=== PATIENT | female | born 1950 | race Caucasian/White ===

== ENCOUNTER 2017-12-15 06:32 | Day surgery (SDC) | payer MEDICARE, SELFPAY ==
[2017-12-09 09:12] VITALS: BP 124/80; PULSE 95; RESP 16; TEMP 37; O2SAT 94; BMI 32.8
--- NOTE | 2017-12-09 14:45 | SDCEKG_ITS ---
Test Reason : Blood Pressure : / mmHG Vent. Rate : 085 BPM Atrial Rate : 085 BPM P-R Int : 140 ms QRS Dur : 074 ms QT Int : 358 ms P-R-T Axes : 063 049 043 degrees QTc Int : 426 ms Normal sinus rhythm Normal ECG Confirmed by MIGUEL BERMAN, [place] ([id number]), online content editor SANDRA FRANK ([id number]) on 12/11/2017 1:00:01 PM Referred By: Leslie Mclaughlin Confirmed By:AFRICA RIVERA MD
--- NOTE | 2017-12-15 | BLA_PTH ---
PATIENT: NADIRA ORELLANA [place] [facility] [place][id number] AGE/SX: 67/F ROOM: RE12/15/[address]: Dr. Leslie Mclaughlin MD : 1950 BED: DIS: 12/15/2017 SPEC #: [id number] RECD: 12/15/17 12:03 STATUS: TARAN TIH #: [id number] MATTIE: 12/15/17 00:[address]: Leslie Mclaughlin DEPT: SURGICAL PATHOLOGY RECD BY: Sudhir Byrd ENTERED: 12/15/17 12:04 SP TYPE: BLADDER BX OTHR DR: Out of Town Doctor Tissues: Urinary bladder, NOS Procedures: Surgery Specimen Level IV HEADER OPERATION: Cyst, urethral dilation, poss. bladder biopsy with fulguration PRE-OP DIAGNOSIS: Cystitis TISSUE SUBMITTED: Bladder biopsy MICROSCOPIC DIAGNOSIS Bladder, biopsy: Urothelial mucosa with chronic inflammation. Negative for malignancy. See comment. SJ:eleanor 12/16/17 COMMENT Detrusor muscle is not identified in the submitted specimen. The epithelium is denuded from the underlying mucosa. MICROSCOPIC DESCRIPTION Slides are reviewed. GROSS DESCRIPTION Received in fixative is one container labeled with the patient's name and designated bladder biopsy. The specimen consists of multiple irregular fragments of light taylor soft tissue that in aggregate measure 0.2 x 0.2 x 0.1 cm. The specimen is totally submitted in one cassette. / SJ:eleanor 12/15/17 TC:3 CPT: 79163
[2017-12-15 06:59] VITALS: BP 136/72; PULSE 74; RESP 16; TEMP 37; O2SAT 98; BMI 32.8
[2017-12-15] MEDS: Cefazolin 2 GM in 0.9% Normal Saline 100 ML IV (08:04)
--- NOTE | 2017-12-15 08:49 | PCM.IMDPSTOP ---
Immediate Post-Op Note Date of Procedure: 12/15/17 Primary Surgeon/Physician: Leslie Mclaughlin MD employment appeals examiner: None Pre-Operative Diagnosis: interstitial cystitis, bladder pain, urinary frequency, urethral stenosis Post-Operative Diagnosis: same and Hunner's Ulcers Surgery/Procedure Performed:: cystoscopy, bladder biopsy and fulguration Description of Surgical Findings:: two large ulcerations on the dome of the bladder approximately 1cm in size each. Estimated Blood Loss: 2cc Specimen's removed: bladder biopsy Type of Anesthesia:: General - Admit VTE Documentation VTE Present on Admission: Yes VTE Mechan Device Prophylaxis: SCD's VTE Pharm Prophylaxis ordered?: No Reason prophylaxis not ordered:: Treatment Not Indicated
--- NOTE | 2017-12-15 08:52 | OP.PN_ITS ---
Immediate Post-Op Note Date of Procedure: 12/15/17 Primary Surgeon/Physician: Leslie Mclaughlin MD double end tenon operator: None Pre-Operative Diagnosis: interstitial cystitis, bladder pain, urinary frequency, urethral stenosis Post-Operative Diagnosis: same and Hunner's Ulcers Surgery/Procedure Performed:: cystoscopy, bladder biopsy and fulguration Description of Surgical Findings:: two large ulcerations on the dome of the bladder approximately 1cm in size each. Estimated Blood Loss: 2cc Specimen's removed: bladder biopsy Type of Anesthesia:: General - Admit VTE Documentation VTE Present on Admission: Yes VTE Mechan Device Prophylaxis: SCD's VTE Pharm Prophylaxis ordered?: No Reason prophylaxis not ordered:: Treatment Not Indicated
--- NOTE | 2017-12-15 08:56 | OP.PCM_ITS ---
Problem List (1) Interstitial cystitis Status: Acute (2) Urinary frequency Status: Acute (3) Bladder pain Status: Acute (4) Urethral stenosis Status: Acute Report of Operation Date of Procedure: 12/15/17 Pre-Operative Diagnosis: interstitial cystitis, bladder pain, urinary frequency, urethral stenosis Post-Operative Diagnosis: same and Hunner's Ulcers Surgery/Procedure Performed:: urethral dilation, cystoscopy, bladder biopsy and fulguration Description of Surgical Findings:: two large ulcerations on the dome of the bladder approximately 1cm in size each. Type of Anesthesia:: General Specimen's removed: bladder biopsy Estimated Blood Loss (mL): 2cc Description of Procedure: The patient is a 67-year-old female that I have been treating for se veral years with signs and symptoms of interstitial cystitis. I attempted cystoscopy on her but it was too painful for me to dilate her urethra in order to do the cystoscopy. After discussing all of the risks benefits and alternatives, she has agreed to proceed with cystoscopy under anesthesia with urethral dilation, possible biopsy if necessary. The patient was taken to the operating room and placed on the operating room table. Anesthesia monitored the head, neck, airway, vital signs, IV access during the case. Once anesthesia was appropriately administered the patient was placed into dorsal lithotomy and Trendelenburg position. She was prepped and draped in usual sterile fashion. Her urethra was then dilated from 13 Cypriot up to 29 Cypriot. A cystourethroscopy was then performed and revealed 2 large Hunner's ulcers on the posterior bladder wall close to the dome of the bladder. Each were approximately 1 cm in size. There was diffuse irritation and bleeding from the bladder mucosa. I biopsied the largest ulcer in the posterior bladder wall. I fulgurated this ulceration and the other clear area of ulceration. This was done for tissue treatment and hemostatic control. At this point, once appropriate fulguration had been performed, the patient's bladder was emptied and the case was terminated. She was taken to the recovery room in good condition. - Complications none. - Admit VTE Documentation VTE Present on Admission: Yes VTE Mechan Device Prophylaxis: SCD's VTE Pharm Prophylaxis ordered?: No Reason prophylaxis not ordered:: Treatment Not Indicated
[2017-12-15 08:59] VITALS: BP 127/70; BP 136/72; PULSE 76; RESP 16; TEMP 36.2; O2SAT 93
--- NOTE | 2017-12-15 09:11 | DCINST_ITS ---
Discharge Diet: No Restrictions - avoid acidic foods Discharge Activity: Return to Normal Activity May resume sexual activity in: No Restrictions Call your doctor if you observe: Fever of 101 or Higher, Inability to urinate, Shortness of breath, Chest pain, Calf discomfort Allergies/Adverse Reactions: Allergies SEASONAL ALLERGIES Allergy (Uncoded 12/09/17 09:09) Other Medications to take at Discharge Amoxicillin 875 mg PO BID 12/09/17 Ibuprofen/Pseudoephedrine HCl [Advil Cold & Sinus Caplet] 1 each PO BID 12/09/17 Meclizine HCl [Antivert] 12.5 mg PO BID PRN PRN 12/09/17 Methen/Sod Phos/Meth Blue/Hyos [Urogesic-Blue Tablet] 1 each PO PRN PRN 12/09/17 Oxycodone HCl/Acetaminophen [Percocet 5/325] 1 - 2 tab PO Q6H PRN PRN 7 Days #30 tab 12/15/17 The following prescriptions were given: Oxycodone HCl/Acetaminophen [Percocet 5/325] 1 - 2 tab PO Q6H PRN PRN 7 Days #30 tab PRN Reason: Pain Primary Care Physician: [facility] Doctor,Out of [Primary Care Provider] - Test Results: Test results from this visit will be discussed in further detail at your follow- up appointment, if applicable. Please Follow Up With: Leslie Mclaughlin MD When: 1 week, call for appt.
[2017-12-15 09:13] VITALS: BP 116/61; BP 136/72; PULSE 71; RESP 16; O2SAT 96
[2017-12-15 09:25] VITALS: BP 128/57; BP 136/72; PULSE 76; RESP 16; TEMP 35.8; O2SAT 96
[2017-12-15] MEDS: oxyCODONE 5 MG Tablet PO (10:00)
[2017-12-15 10:50] VITALS: BP 135/72; BP 136/72; PULSE 65; RESP 16; TEMP 36.6; O2SAT 98
== END 2017-12-15 10:50 | disposition home or self-care (01) ==
PROVIDERS: Referring Provider Urology; Visit Provider Urology
PROC: 0TBB8ZX Excision of Bladder, Via Natural or Artificial Opening Endoscopic, Diagnostic (ICD-10-PCS; CPT 52204; principal; 2017-12-15 07:50)
DX: N30.10 Interstitial cystitis (chronic) without hematuria (principal); N35.92 Unspecified urethral stricture, female; N90.5 Atrophy of vulva; M19.90 Unspecified osteoarthritis, unspecified site
CPT/HCPCS: 00910; 52204; 52281; 88305; 93005; J7120; J2405

== ENCOUNTER 2020-06-12 07:58 | Day surgery (SDC) | payer MEDICARE, SELFPAY ==
--- NOTE | 2020-06-05 15:12 | EKG12_ITS ---
Test Reason : PRE-OP Blood Pressure : / mmHG Vent. Rate : 067 BPM Atrial Rate : 067 BPM P-R Int : 130 ms QRS Dur : 080 ms QT Int : 398 ms P-R-T Axes : 043 030 038 degrees QTc Int : 420 ms Normal sinus rhythm Normal ECG Confirmed by MIGUEL BERMAN, [place] ([id number]), assistant film editor ZOIE SERRANO ([id number]) on 06/06/2020 10:01:24 AM Referred By: Leslie Mclaughlin Confirmed By:AFRICA RIVERA MD
[2020-06-12] MEDS: Cefazolin 2 GM in 0.9% Normal Saline 100 ML IV (09:29)
--- NOTE | 2020-06-12 09:35 | BLA_PTH ---
PATIENT: NADIRA ORELLANA LOC: [facility] – [place] U#:[id number] AGE/SX: 70/F ROOM: RE06/12/[address]: Dr. Leslie Mclaughlin MD : 1950 BED: DIS: 06/12/2020 SPEC #: [id number] RECD: 06/12/20 10:02 STATUS: TARAN NESS #: [id number] MATTIE: 06/12/20 09:[address]: Leslie Mclaughlin DEPT: SURGICAL PATHOLOGY RECD BY: Ruby Lenz Tissues: Urinary bladder, NOS Procedures: Surgery Specimen Level IV HEADER OPERATION: Cyst, biopsy, fulguration, bladder tumor PRE-OP DIAGNOSIS: Chronic interstitial cystitis without hematuria TISSUE SUBMITTED: Bladder tissue biopsy MICROSCOPIC DIAGNOSIS Urinary bladder, biopsy: Chronic follicular cystitis. See comment. AM:eleanor 06/13/2020 COMMENT Detrusor muscle is not present in the biopsy. Clinical correlation is suggested. MICROSCOPIC DESCRIPTION Slides are reviewed. GROSS DESCRIPTION Received in fixative is one container labeled with the patient's name and designated bladder biopsy. The specimen consists of three minute fragments of light taylor soft tissue each measuring 0.1 cm in greatest dimension. The entire specimen is submitted in one cassette. / SJ:rg 06/12/2020 TC:3 CPT: 82691
--- NOTE | 2020-06-12 10:05 | PCM.DC ---
Discharge Instructions Outpatient Procedure Reason For Visit: CYSTO BX FULG BLADDER POSS HYDRODISTENTION Diet Discharge Diet: No restrictions Activity Discharge Activity: Return to Normal Activity and May not drive while taking narcotic pain medications. May resume sexual activity in: No Restrictions Dressing / Incision Call your doctor if you observe: Fever of 101 or Higher, Inability to urinate, Inability to have a bowel movement, Calf discomfort and Uncontrolled pain Follow Up Care Please Follow Up With: Leslie Mclaughlin MD When: call for appt in 2 weeks Test Results: Test results from this visit will be discussed in further detail at your follow-up appointment, if applicable. Discharge Plan Admission Primary Reason for Your Visit: interstitial cystitis Attending Provider: Leslie Mclaughlin Discharge Orders/Prescriptions Prescriptions: New cephalexin [cephalexin] 500 MG capsule 500 mg PO Q12 3 Days Qty: 6 RF: 0 oxycodone-acetaminophen [Endocet] 5-325 mg tablet 2 tab PO Q8H PRN (Reason: pain) 7 Days Qty: 20 RF: 0 oxycodone-acetaminophen [Percocet] 5-325 mg tablet 2 tab PO Q8H PRN (Reason: pain) 7 Days Qty: 20 RF: 0 Continued omega-3 fatty acids 1,000 MG capsule 1,000 mg PO DAILY RF: 0 famotidine 20 MG tablet 20 mg PO BID RF: 0 magnesium oxide 250 MG tablet 250 mg PO DAILY RF: 0 vit A,C and B-mimkxv-jxxzdmeb 1 EACH tablet 1 each PO DAILY RF: 0 methen-sod phos-meth blue-hyos 1 EACH tablet 1 each PO DAILY RF: 0 mirabegron 50 MG tablet extended release 24 hr 50 mg PO DAILY RF: 0 L.acidoph, paracasei,B. lactis 1 EACH capsule 1 each PO DAILY RF: 0 turmeric 400 MG capsule 1,200 mg PO DAILY RF: 0 Cholecalciferol (Vitamin D3) [Vitamin D3] 5,000 UNIT capsule 5,000 unit PO DAILY RF: 0 Raw Enzyme For Women 1 cap PO DAILY RF: 0 Referrals: BHARAT SCHWARTZ [Other] Disposition Patient Disposition: Home, self care
[2020-06-12 10:06] VITALS: BP 107/61; BP 117/57; PULSE 77; RESP 16; TEMP 35.9; O2SAT 99
[2020-06-12 10:10] VITALS: BP 105/59; BP 117/57; PULSE 78; RESP 16; O2SAT 100
[2020-06-12 10:15] VITALS: BP 112/59; BP 117/57; PULSE 77; RESP 16; O2SAT 100
[2020-06-12] MEDS: Lactated Ringers 1,000 ML 100 ML IV (10:17)
[2020-06-12 10:20] VITALS: BP 116/66; BP 117/57; PULSE 74; RESP 16; O2SAT 100
[2020-06-12 10:25] VITALS: BP 117/57; BP 99/74; PULSE 74; RESP 16; TEMP 35.8; O2SAT 100
--- NOTE | 2020-06-12 11:13 | PCM.OPRPT ---
Problems Associated Problem List Diagnoses (1) Interstitial cystitis: (2) Bladder ulcer: Report of Operation Date of Procedure: 06/12/20 Pre-Operative Diagnosis: Interstitial cystitis Post-Operative Diagnosis: Same, with Hunner's ulcers Surgery/Procedure Performed:: Cystoscopy with bladder biopsy and fulguration Type of Anesthesia: MAC Specimen's removed: Bladder biopsy x3 Description of Procedure: The patient is a 70-year-old female with a history of interstitial cystitis who had a cystoscopy with Hunner's ulcers approximately 18 months ago. She has been having difficulty with management of her symptoms and the decision was made to take her back to the operating room for repeat cystoscopy possible bladder biopsy, possible hydrodistention. Informed consent was obtained. The patient was taken to the operating room and placed on the operating room table. Anesthesia monitored the head, neck, airway, IV access and vital signs throughout the case. Once anesthesia was appropriately ministered the patient was placed into dorsal lithotomy position was prepped and draped in usual sterile fashion. The cystoscope was inserted through the urethra under direct visualization into the urinary bladder. The bladder mucosa was visualized in its entirety. There were 3 areas of ulceration identified, 1 of these areas with 2 ulcers adjacent to each other. They were located on the area of the posterior bladder wall on the left side and extending across the dome of the bladder. 3 biopsies of these ulcerative lesions were taken and sent for evaluation with pathology. The areas of biopsy and surrounding ulcerations were fulgurated for hemostatic control and tissue treatment. The bladder was then emptied and the cystoscope was removed. The patient tolerated the procedure well. She was awakened and taken to the recovery room in good condition. There were no complications during this procedure. Grafts/Implants Used: None Complications None Admit VTE Documentation VTE Present on Admission: Yes VTE Mechan Device Prophylaxis: SCD's VTE Pharm Prophylaxis ordered?: No Reason prophylaxis not ordered:: Treatment Not Indicated
[2020-06-12 11:29] VITALS: BP 114/55; BP 117/57; PULSE 6; RESP 16; TEMP 36.3; O2SAT 100
== END 2020-06-12 11:34 | disposition home or self-care (01) ==
LOC: SDC 07:58 → AC 07:59
PROVIDERS: Referring Provider Urology; Visit Provider Urology
PROC: 0TBB8ZX Excision of Bladder, Via Natural or Artificial Opening Endoscopic, Diagnostic (ICD-10-PCS; CPT 52204; principal; 2020-06-12 09:25)
DX: N30.10 Interstitial cystitis (chronic) without hematuria (principal); N32.89 Other specified disorders of bladder; G25.81 Restless legs syndrome; K21.9 Gastro-esophageal reflux disease without esophagitis; Z79.899 Other long term (current) drug therapy; J45.909 Unspecified asthma, uncomplicated
CPT/HCPCS: 00910; 52204; 88305; 93005; J7120; J2405